=== PATIENT | female | born 1965 | race Two or more races ===

== ENCOUNTER → 2020-02-25 | Outpatient (CLI) | payer MEDICARE | END | disposition home or self-care (01) | LOC: LAB 15:42 → EDBD 15:42 | DX: E87.5 Hyperkalemia (principal) | CPT/HCPCS: 36415; 84132 ==

== ENCOUNTER 2020-09-20 20:26 | Inpatient (IN) | payer MEDICARE, MEDICAID ==
[~2020-09-20] VITALS: Ht 165.1 cm; Wt 119.1 kg
[2020-09-20 21:20] LABS: Basophils # (auto) 0.1 10 ^3/uL (0-0.2); Basophils % (auto) 0.8 % (0.0-2.0); Eosinophils # (auto) 0.1 10 ^3/uL (0-0.8); Lymphocytes # (auto) 1.1 10 ^3/uL (0.4-5.4)
[2020-09-20 21:23] LABS: Eosinophils % (auto) 0.7 % (0.0-7.0); Hematocrit 29.6 % (36.0-46.0); Hemoglobin 10.3 g/dL (12.2-16.2); Mean Corpuscular Hgb Conc. 34.6 g/dL (32.0-36.0); Mean Corpuscular Volume 78.2 fL (80.0-100.0); Monocytes % (auto) 6.3 % (0.0-12.0); Neutrophils # (auto) 13.1 10 ^3/uL (1.6-8.6); Neutrophils % (auto) 85.2 % (37.0-80.0); Platelet Count (auto) 480 10^3/uL (140-450); Red Blood Cells 3.79 10^6/uL (4.0-5.20); Red Cell Distribution Width 14.7 % (11.8-14.3); White Blood Cell 15.4 10^3/uL (4.4-10.8)
[2020-09-20 21:37] LABS: Potassium 4.8 mmol/L (3.5-5.1)
[2020-09-20 21:42] LABS: Albumin 2.2 g/dL (3.4-5.0); BUN/Creatinine Ratio 14.5; Calcium 8.4 mg/dL (8.5-10.1)
[2020-09-20 21:44] LABS: Bilirubin, Total 0.3 mg/dL (0.2-1.0); Total Protein 7.7 g/dL (6.4-8.2)
[2020-09-20] MEDS ORDERED: ONDANSETRON HCL 4 MG/2 ML VIAL IV ONE (22:15)
[2020-09-20] MEDS ORDERED: MORPHINE SULFATE 4 MG/ML SYR/VIAL IV ONE (22:15)
[2020-09-20] MEDS ORDERED: SODIUM CHLORIDE 0.9% 1,000 ML IV ONE (22:15)
[2020-09-21] MEDS ORDERED: PIPERACILLIN-TAZO 4.5GM 100 ML IV ONE (01:00)
[2020-09-21] MEDS ORDERED: VANCOMYCIN HCL 1000 MG VL IR ONE (01:00)
[2020-09-21] MEDS ORDERED: DOCUSATE SOD 100 MG CAP PO PRN (01:45)
[2020-09-21] MEDS ORDERED: VANCOMYCIN 1GM/250ML 250 ML IV ONE ×2 (01:45)
[2020-09-21] MEDS ORDERED: DEXTROSE (50%) 50ML SYRG IV PRN (01:45)
[2020-09-21] MEDS ORDERED: ACETAMINOPHEN 325 MG TAB PO PRN (01:45)
[2020-09-21] MEDS ORDERED: VANCOMYCIN PER PHARMACY 0 MG IV SCH (01:45)
[2020-09-21] MEDS ORDERED: MORPHINE SULF INJ 2 MG/ML SYRINGE 1ML IV PRN (01:45)
[2020-09-21] MEDS ORDERED: NITROGLYCERIN 0.4 MG SL TAB SL PRN (01:45)
[2020-09-21] MEDS: HYDROcodone-ACET 5/325MG TAB PO PRN ×2 (03:54→10:17)
[2020-09-21] MEDS: PIPERACILLIN-TAZOB 2.25GM 50 ML IV SCH ×3 (05:36→21:38)
[2020-09-21 06:04] LABS: Urine Bacteria MOD /hpf (None Seen); Urine Blood 1+ /uL (Negative); Urine Budding Yeast MANY /hpf (None Seen); Urine Hyaline Cast FEW /lpf (0 - 2); Urine Specific Gravity 1.021 (1.001-1.035); Urine WBC 60 /hpf (0 - 5)
[2020-09-21] MEDS: ACCU-CHEK COMFORT CURVE STRIP VI SCH ×4 (06:45→21:39)
[2020-09-21] MEDS: InsuLIN REG 1unit/0.01ml Soln (100units/ml) SC SCH ×4 (06:46→21:38)
[2020-09-21 07:37] LABS: Basophils # (auto) 0.1 10 ^3/uL (0-0.2); Eosinophils # (auto) 0.2 10 ^3/uL (0-0.8); Eosinophils % (auto) 1.4 % (0.0-7.0); Hemoglobin 9.4 g/dL (12.2-16.2); Lymphocytes # (auto) 1.9 10 ^3/uL (0.4-5.4)
[2020-09-21 07:42] LABS: Basophils % (auto) 0.7 % (0.0-2.0); Hematocrit 27.7 % (36.0-46.0); Lymphocytes % (auto) 13.5 % (10.0-50.0); Mean Corpuscular Hemoglobin 26.6 pg (28.0-32.0); Mean Corpuscular Hgb Conc. 33.8 g/dL (32.0-36.0); Mean Corpuscular Volume 78.6 fL (80.0-100.0); Monocytes % (auto) 7.1 % (0.0-12.0); Neutrophils # (auto) 10.8 10 ^3/uL (1.6-8.6); Neutrophils % (auto) 77.3 % (37.0-80.0); Platelet Count (auto) 434 10^3/uL (140-450); Red Blood Cells 3.52 10^6/uL (4.0-5.20); Red Cell Distribution Width 14.9 % (11.8-14.3)
[2020-09-21 07:59] LABS: Calcium 8.2 mg/dL (8.5-10.1); Potassium 4.7 mmol/L (3.5-5.1)
[2020-09-21 08:05] LABS: BUN/Creatinine Ratio 15.3; Bilirubin, Total 0.4 mg/dL (0.2-1.0); Total Protein 6.9 g/dL (6.4-8.2)
[2020-09-21] MEDS: MULTIPLE VITAMIN TAB PO SCH (10:00)
[2020-09-21] MEDS: FAMOTIDINE 20 MG TAB PO SCH (10:16)
[2020-09-21] MEDS: ZINC SULFATE 220mg CAP or TAB PO SCH (10:16)
[2020-09-21] MEDS: ASCORBIC ACID 500 MG TAB PO SCH ×2 (10:17→21:38)
[2020-09-21] MEDS: HEPARIN SODIUM (PORCINE) 5000 UNITS/ML 1ML VIAL SC SCH ×2 (10:18→21:38)
[2020-09-21] MEDS ORDERED: GABA-339 PO (10:48)
[2020-09-21] MEDS ORDERED: METH10T PO (10:48)
[2020-09-21] MEDS ORDERED: OXY20CRT PO (10:48)
[2020-09-21] MEDS ORDERED: PERCOT PO (10:48)
[2020-09-21] MEDS ORDERED: LEVEMIR SC (10:48)
[2020-09-21] MEDS ORDERED: ATE50T PO (10:48)
[2020-09-21] MEDS ORDERED: FURO40TA4 PO (10:48)
[2020-09-21] MEDS ORDERED: NIFE1TAB30 PO (10:48)
[2020-09-21] MEDS ORDERED: CITA10TA8 PO (10:48)
[2020-09-21] MEDS ORDERED: INSUINJ18 SC (10:48)
[2020-09-21] MEDS ORDERED: IBUP800T26 PO (10:48)
[2020-09-21] MEDS: LINEZOLID 600MG/300ML 300 ML IV SCH ×2 (12:24→13:16)
[2020-09-21] MEDS: DAKINS QUARTER STR 0.125% (NaHypochlorite) 473 ML TOPICAL SOL TOP SCH ×2 (12:54→21:52)
[2020-09-21 13:00] VITALS: BP 144/66
[2020-09-21 13:41] LABS: Partial Thromboplastin Time 35.3 sec (23.0-31.2)
[2020-09-21 17:00] VITALS: BP 139/67
[2020-09-21] MEDS: MORPHINE SULF INJ 2 MG/ML SYRINGE 1ML IV PRN ×2 (17:20→21:39)
[2020-09-21 18:39] LABS: Partial Thromboplastin Time 35.1 sec (23.0-31.2)
[2020-09-21] MEDS: ONDANSETRON HCL 4 MG/2 ML VIAL IV PRN (21:39)
[2020-09-21 22:00] VITALS: BP 134/69
[2020-09-22] MEDS: ONDANSETRON HCL 4 MG/2 ML VIAL IV PRN (03:41)
[2020-09-22] MEDS: MORPHINE SULF INJ 2 MG/ML SYRINGE 1ML IV PRN (03:41)
[2020-09-22] MEDS: PIPERACILLIN-TAZOB 2.25GM 50 ML IV SCH ×2 (05:31→14:00)
[2020-09-22] MEDS: ACCU-CHEK COMFORT CURVE STRIP VI SCH ×2 (05:31→11:30)
[2020-09-22 05:33] VITALS: BP 158/70
[2020-09-22] MEDS: InsuLIN REG 1unit/0.01ml Soln (100units/ml) SC SCH ×2 (05:55→11:30)
[2020-09-22 06:12] LABS: Basophils # (auto) 0 10 ^3/uL (0-0.2); Basophils % (auto) 0.6 % (0.0-2.0); Eosinophils # (auto) 0.2 10 ^3/uL (0-0.8); Eosinophils % (auto) 2.2 % (0.0-7.0); Hematocrit 27.2 % (36.0-46.0); Hemoglobin 9.6 g/dL (12.2-16.2); Lymphocytes # (auto) 1.1 10 ^3/uL (0.4-5.4); Lymphocytes % (auto) 13.1 % (10.0-50.0); Mean Corpuscular Hemoglobin 27.4 pg (28.0-32.0); Mean Corpuscular Hgb Conc. 35.1 g/dL (32.0-36.0); Mean Corpuscular Volume 78.2 fL (80.0-100.0); Monocytes # (auto) 0.7 10 ^3/uL (0-1.3); Monocytes % (auto) 8.3 % (0.0-12.0); Neutrophils # (auto) 6.3 10 ^3/uL (1.6-8.6); Neutrophils % (auto) 75.8 % (37.0-80.0); Platelet Count (auto) 450 10^3/uL (140-450); Red Blood Cells 3.48 10^6/uL (4.0-5.20); Red Cell Distribution Width 14.6 % (11.8-14.3); White Blood Cell 8.3 10^3/uL (4.4-10.8)
[2020-09-22 06:40] LABS: Potassium 4.9 mmol/L (3.5-5.1)
[2020-09-22 06:55] LABS: Albumin 1.9 g/dL (3.4-5.0); BUN/Creatinine Ratio 18.1; Bilirubin, Total 0.3 mg/dL (0.2-1.0); Calcium 7.8 mg/dL (8.5-10.1); Total Protein 6.6 g/dL (6.4-8.2)
[2020-09-22 08:46] LABS: % Iron Saturation 16.5 % (15-50)
[2020-09-22 09:00] VITALS: BP 152/76
[2020-09-22] MEDS: MULTIPLE VITAMIN TAB PO SCH (10:11)
[2020-09-22] MEDS: ZINC SULFATE 220mg CAP or TAB PO SCH (10:11)
[2020-09-22] MEDS: FAMOTIDINE 20 MG TAB PO SCH (10:12)
[2020-09-22] MEDS: ASCORBIC ACID 500 MG TAB PO SCH (10:14)
[2020-09-22] MEDS: HEPARIN SODIUM (PORCINE) 5000 UNITS/ML 1ML VIAL SC SCH (10:14)
[2020-09-22] MEDS: DAKINS QUARTER STR 0.125% (NaHypochlorite) 473 ML TOPICAL SOL TOP SCH (10:15)
[2020-09-22 13:00] VITALS: BP 153/71
[2020-09-22] MEDS ORDERED: METR500T PO (13:12)
[2020-09-22] MEDS ORDERED: LEVO-28 PO (13:12)
[2020-09-22 15:35] VITALS: BP 146/78
== END 2020-09-22 17:15 | disposition home or self-care (01) | DRG 444 ==
LOC: EDBD 20:26 → ER 20:31 → TELE 09-21 01:37 → TELE-WESTW 09-21 08:56
PROVIDERS: ADMIT Nurse Practitioner Family; ATTEND Internal Medicine
DX: K80.20 Calculus of gallbladder without cholecystitis without obstruction (principal); N17.0 Acute kidney failure with tubular necrosis; E43 Unspecified severe protein-calorie malnutrition; L03.115 Cellulitis of right lower limb; E11.52 Type 2 diabetes mellitus with diabetic peripheral angiopathy with gangrene; E87.1 Hypo-osmolality and hyponatremia; J96.10 Chronic respiratory failure, unspecified whether with hypoxia or hypercapnia; Z68.41 Body mass index [BMI] 40.0-44.9, adult; N18.4 Chronic kidney disease, stage 4 (severe); L03.116 Cellulitis of left lower limb; E11.621 Type 2 diabetes mellitus with foot ulcer; E88.09 Other disorders of plasma-protein metabolism, not elsewhere classified; E66.01 Morbid (severe) obesity due to excess calories; E11.65 Type 2 diabetes mellitus with hyperglycemia; E11.22 Type 2 diabetes mellitus with diabetic chronic kidney disease; L97.519 Non-pressure chronic ulcer of other part of right foot with unspecified severity; L97.529 Non-pressure chronic ulcer of other part of left foot with unspecified severity; Z80.1 Family history of malignant neoplasm of trachea, bronchus and lung; Z82.0 Family history of epilepsy and other diseases of the nervous system; Z20.822 Contact with and (suspected) exposure to COVID-19; Z53.29 Procedure and treatment not carried out because of patient's decision for other reasons; I10 Essential (primary) hypertension
CPT/HCPCS: 36415; 71045; 73630; 74176; 76705; 80053; 80202; 81001; 82570; 82962; 83036; 83540; 83550; 83605; 83930; 83935; 84156; 84439; 84443; 85025; 85610; 85652; 85730; 86850; 86900; 86901; 87077; 87086; 87088; 87186; 87205; 87426; 93005; 96361; 96365; 96366; 96368; 96375; G0378; J1815; J2405; J2543

== ENCOUNTER 2021-05-03 17:12 | Inpatient (IN) | payer MEDICARE, MEDICAID ==
[~2021-05-03] VITALS: Ht 172.7 cm; Wt 99.6 kg
[~2021-05-03 17:12] MED LIST: ATE50T PO; CITA10TA8 PO; FURO40TA4 PO; GABA-339 PO; INSUINJ18 SC; LEVEMIR SC; LEVO-28 PO; METH10T PO; METR500T PO; NIFE1TAB30 PO; OXY20CRT PO; PERCOT PO
[2021-05-03] MEDS ORDERED: methylPREDNISolone SOD SUCC 125 MG/2 ML VL IV ONE (17:30)
[2021-05-03] MEDS ORDERED: AZITHROMYCIN 500MG/ 250ML 250 ML IV ONE (17:30)
[2021-05-03 18:03] LABS: Basophils # (auto) 0.1 10 ^3/uL (0-0.2); Basophils % (auto) 0.4 % (0.0-2.0); Eosinophils # (auto) 0.1 10 ^3/uL (0-0.8); Eosinophils % (auto) 0.7 % (0.0-7.0); Hematocrit 29.3 % (36.0-46.0); Hemoglobin 9.6 g/dL (12.2-16.2); Lymphocytes # (auto) 0.5 10 ^3/uL (0.4-5.4); Lymphocytes % (auto) 2.9 % (10.0-50.0); Mean Corpuscular Hemoglobin 27.7 pg (28.0-32.0); Mean Corpuscular Hgb Conc. 32.8 g/dL (32.0-36.0); Mean Corpuscular Volume 84.4 fL (80.0-100.0); Monocytes # (auto) 0.7 10 ^3/uL (0-1.3); Monocytes % (auto) 4.4 % (0.0-12.0); Neutrophils # (auto) 14.6 10 ^3/uL (1.6-8.6); Neutrophils % (auto) 91.6 % (37.0-80.0); Red Blood Cells 3.47 10^6/uL (4.0-5.20); Red Cell Distribution Width 17.7 % (11.8-14.3); White Blood Cell 15.9 10^3/uL (4.4-10.8)
[2021-05-03 18:10] LABS: Urine Bacteria MOD /hpf (None Seen); Urine Blood Negative /uL (Negative); Urine Mucus FEW (None Seen); Urine Specific Gravity 1.008 (1.001-1.035); Urine WBC 13 /hpf (0 - 5); Urine WBC Clumps PRESENT /hpf (None Seen)
[2021-05-03 18:19] LABS: Albumin 2.4 g/dL (3.4-5.0); Calcium 7.7 mg/dL (8.5-10.1); Magnesium 1.3 mg/dL (1.6-2.6)
[2021-05-03 18:28] LABS: BUN/Creatinine Ratio 17.8; Bilirubin, Total 0.2 mg/dL (0.2-1.0); CRP High Sensitivity 4.47 mg/dL (< 0.3); Total Protein 6.9 g/dL (6.4-8.2)
[2021-05-03 19:01] LABS: Potassium 6.1 mmol/L (3.5-5.1)
[2021-05-03] MEDS ORDERED: SODIUM BICARBONATE 8.4 % INJ 50ML VIAL IV ONE (19:30)
[2021-05-03] MEDS ORDERED: CALCIUM GLUC 1,000mg/50ml-NS 50 ML IV ONE (19:30)
[2021-05-03] MEDS ORDERED: cefTRIAXone 1GM/50ML D5W 50 ML IV ONE (19:30)
[2021-05-03] MEDS ORDERED: InsuLIN REG 1unit/0.01ml Soln (100units/ml) IV ONE (20:00)
[2021-05-03] MEDS ORDERED: ACETAMINOPHEN 325 MG TAB PO ONE (20:45)
[2021-05-03] MEDS ORDERED: ONDANSETRON HCL 4 MG/2 ML VIAL IV PRN (21:15)
[2021-05-03] MEDS ORDERED: DEXTROSE (50%) 50ML SYRG IV PRN (21:15)
[2021-05-03] MEDS ORDERED: FUROSEMIDE 20 MG/2 ML VIAL IV ONE (21:15)
[2021-05-03] MEDS: MAGNESIUM SULFATE 1GM/100ML 100 ML IV SCH (22:05)
[2021-05-03] MEDS ORDERED: NALOXONE HCL 0.4 MG/ML VIAL IV ONE (23:00)
[2021-05-03] MEDS ORDERED: NITROGLYCERIN 0.4 MG SL TAB SL PRN (23:00)
[2021-05-03] MEDS ORDERED: MORPHINE SULFATE INJECTION 2 MG/ML SYRG IV PRN (23:00)
[2021-05-03 23:56] LABS: Hemoglobin 9.7 g/dL (12.2-16.2)
[2021-05-03 23:59] LABS: Hematocrit 29.5 % (36.0-46.0)
[2021-05-04] MEDS: MAGNESIUM SULFATE 1GM/100ML 100 ML IV SCH
[2021-05-04] MEDS: ASCORBIC ACID 500 MG TAB PO SCH ×3 (00:01→22:24)
[2021-05-04] MEDS: ACCU-CHEK COMFORT CURVE STRIP VI SCH ×6 (00:01→20:00)
[2021-05-04] MEDS: ATENOLOL 25 MG TAB PO SCH ×3 (00:01→22:24)
[2021-05-04] MEDS: InsuLIN REG 1unit/0.01ml Soln (100units/ml) SC SCH ×6 (00:05→22:38)
[2021-05-04] MEDS ORDERED: MAGNESIUM SULFATE 1GM/100ML 100 ML IV ONE (02:02)
[2021-05-04 07:31] LABS: Basophils # (auto) 0 10 ^3/uL (0-0.2); Basophils % (auto) 0.1 % (0.0-2.0); Eosinophils # (auto) 0 10 ^3/uL (0-0.8); Hematocrit 30.5 % (36.0-46.0); Lymphocytes # (auto) 0.6 10 ^3/uL (0.4-5.4); Lymphocytes % (auto) 3.4 % (10.0-50.0); Mean Corpuscular Hemoglobin 27.2 pg (28.0-32.0); Mean Corpuscular Hgb Conc. 32.7 g/dL (32.0-36.0); Mean Corpuscular Volume 83.2 fL (80.0-100.0); Monocytes # (auto) 0.1 10 ^3/uL (0-1.3); Monocytes % (auto) 0.7 % (0.0-12.0); Neutrophils # (auto) 17.9 10 ^3/uL (1.6-8.6); Neutrophils % (auto) 95.8 % (37.0-80.0); Red Blood Cells 3.66 10^6/uL (4.0-5.20); Red Cell Distribution Width 17.2 % (11.8-14.3); White Blood Cell 18.7 10^3/uL (4.4-10.8)
[2021-05-04] MEDS: FUROSEMIDE 40 MG TAB PO SCH ×2 (07:48→18:51)
[2021-05-04 07:56] LABS: Albumin 2.2 g/dL (3.4-5.0); BUN/Creatinine Ratio 19.8; Bilirubin, Total 0.2 mg/dL (0.2-1.0); Calcium 8.4 mg/dL (8.5-10.1); Total Protein 6.7 g/dL (6.4-8.2)
[2021-05-04] MEDS: cefTRIAXone 1GM/50ML D5W 50 ML IV SCH (08:01)
[2021-05-04 08:22] LABS: Potassium 5.6 mmol/L (3.5-5.1)
[2021-05-04] MEDS ORDERED: DexAMETHasone SOD PHOS 10MG/1ML VIAL INJ IV SCH (10:00)
[2021-05-04] MEDS ORDERED: ZINC SULFATE 220mg CAP or TAB PO SCH (10:00)
[2021-05-04] MEDS: AZITHROMYCIN 500MG/ 250ML 250 ML IV SCH (10:15)
[2021-05-04] MEDS: NIFEdipine ER 30 MG TAB PO SCH (10:16)
[2021-05-04] MEDS: MULTIPLE VITAMIN TAB PO SCH (10:16)
[2021-05-04] MEDS: ACETAMINOPHEN 325 MG TAB PO PRN ×2 (10:19→22:30)
[2021-05-04] MEDS ORDERED: SODIUM ZIRCONIUM CYCL 10 GM PAK PO ONE (10:45)
[2021-05-04 12:37] LABS: BUN/Creatinine Ratio 18.8; Calcium 8.5 mg/dL (8.5-10.1)
[2021-05-04] MEDS ORDERED: SULF400T11 PO ×2 (12:53→18:32)
[2021-05-04] MEDS ORDERED: INSR100KIT SUBCUT (12:53)
[2021-05-04] MEDS ORDERED: OME40GT PO (12:53)
[2021-05-04] MEDS ORDERED: FERR-7 PO (12:53)
[2021-05-04] MEDS ORDERED: MULT-1018 PO ×2 (12:53→18:44)
[2021-05-04] MEDS ORDERED: FLUT250M2 INH (12:53)
[2021-05-04] MEDS ORDERED: CHOL20007 PO ×2 (12:53→18:44)
[2021-05-04] MEDS ORDERED: ALBU2TAB4 PO (12:53)
[2021-05-04] MEDS ORDERED: SODI650T PO ×2 (12:53→18:44)
[2021-05-04 13:29] LABS: Potassium 5.6 mmol/L (3.5-5.1)
[2021-05-04] MEDS ORDERED: CITA10TA8 PO (18:32)
[2021-05-04] MEDS ORDERED: METH10T PO (18:32)
[2021-05-04] MEDS ORDERED: ATEN-60 PO (18:32)
[2021-05-04] MEDS ORDERED: FURO80TA3 PO (18:34)
[2021-05-04] MEDS ORDERED: NIFE90TA49 PO (18:34)
[2021-05-04] MEDS ORDERED: OME20GT PO (18:36)
[2021-05-04] MEDS ORDERED: INSREG3 SC (18:44)
[2021-05-04] MEDS ORDERED: FERR27TA2 PO (18:44)
[2021-05-04 18:57] VITALS: BP 160/82
[2021-05-04] MEDS ORDERED: PNEUMOCOCCAL VACC POLYS 25 MCG/0.5 ML VIAL IM ONE (19:15)
[2021-05-04] MEDS ORDERED: INFLUENZA QUAD 2021-2022 0.5 ML SYRG IM ONE (19:15)
[2021-05-04 20:00] VITALS: BP 144/76
[2021-05-04] MEDS: SODIUM ZIRCONIUM CYCL 10 GM PAK PO SCH (22:23)
[2021-05-05] MEDS: ACCU-CHEK COMFORT CURVE STRIP VI SCH ×7 (01:00→23:58)
[2021-05-05] MEDS: InsuLIN REG 1unit/0.01ml Soln (100units/ml) SC SCH ×6 (01:14→20:15)
[2021-05-05 05:00] VITALS: BP 132/83
[2021-05-05] MEDS: FUROSEMIDE 40 MG TAB PO SCH ×2 (06:12→22:25)
[2021-05-05] MEDS: SODIUM ZIRCONIUM CYCL 10 GM PAK PO SCH ×3 (06:12→22:25)
[2021-05-05 08:00] VITALS: BP 141/69
[2021-05-05] MEDS: cefTRIAXone 1GM/50ML D5W 50 ML IV SCH (09:05)
[2021-05-05] MEDS: NIFEdipine ER 30 MG TAB PO SCH (09:22)
[2021-05-05] MEDS: ATENOLOL 25 MG TAB PO SCH ×2 (09:23→22:26)
[2021-05-05] MEDS: ASCORBIC ACID 500 MG TAB PO SCH ×2 (09:23→22:26)
[2021-05-05] MEDS: MULTIPLE VITAMIN TAB PO SCH (09:24)
[2021-05-05] MEDS: AZITHROMYCIN 500MG/ 250ML 250 ML IV SCH (11:01)
[2021-05-05 12:00] VITALS: BP 142/74
[2021-05-05] MEDS ORDERED: LACTULOSE 20Gm/30ML SOLN PO PRN (13:45)
[2021-05-05 16:00] VITALS: BP 146/75
[2021-05-05] MEDS: OXYCODONE W/ ACETAMINOPHEN 5/325MG TABLET PO SCH ×2 (16:37→22:25)
[2021-05-05] MEDS: METHADONE HCL 10 MG TAB PO SCH ×2 (18:05→23:58)
[2021-05-05 22:00] VITALS: BP 144/74
[2021-05-05] MEDS: INSULIN LANTUS (GLARGINE) 1 /0.01ml (100units/ml) SC SCH (22:23)
[2021-05-05] MEDS: GABAPENTIN 400 MG CAP PO SCH (22:25)
[2021-05-06] MEDS: InsuLIN REG 1unit/0.01ml Soln (100units/ml) SC SCH ×6 (00:15→20:00)
[2021-05-06] MEDS: ALBUTEROL SULF 2.5 MG/0.5ML(0.5%) NEB SOLN NEB PRN (00:24)
[2021-05-06] MEDS: ACCU-CHEK COMFORT CURVE STRIP VI SCH ×5 (04:12→21:55)
[2021-05-06 05:00] VITALS: BP 130/73
[2021-05-06] MEDS: SODIUM ZIRCONIUM CYCL 10 GM PAK PO SCH ×2 (05:30→14:53)
[2021-05-06 06:44] LABS: Basophils # (auto) 0.1 10 ^3/uL (0-0.2); Basophils % (auto) 0.3 % (0.0-2.0); Eosinophils # (auto) 0.1 10 ^3/uL (0-0.8); Eosinophils % (auto) 0.5 % (0.0-7.0); Hematocrit 29.2 % (36.0-46.0); Hemoglobin 9.5 g/dL (12.2-16.2); Lymphocytes # (auto) 2.4 10 ^3/uL (0.4-5.4); Lymphocytes % (auto) 15.1 % (10.0-50.0); Mean Corpuscular Hemoglobin 27.4 pg (28.0-32.0); Mean Corpuscular Hgb Conc. 32.7 g/dL (32.0-36.0); Mean Corpuscular Volume 83.7 fL (80.0-100.0); Monocytes # (auto) 0.8 10 ^3/uL (0-1.3); Monocytes % (auto) 5.2 % (0.0-12.0); Neutrophils # (auto) 12.6 10 ^3/uL (1.6-8.6); Neutrophils % (auto) 78.9 % (37.0-80.0); Red Blood Cells 3.49 10^6/uL (4.0-5.20); Red Cell Distribution Width 17.1 % (11.8-14.3); White Blood Cell 15.9 10^3/uL (4.4-10.8)
[2021-05-06] MEDS: GABAPENTIN 400 MG CAP PO SCH ×3 (06:51→22:46)
[2021-05-06] MEDS: OXYCODONE W/ ACETAMINOPHEN 5/325MG TABLET PO SCH ×4 (06:52→22:45)
[2021-05-06] MEDS: METHADONE HCL 10 MG TAB PO SCH ×3 (06:52→18:09)
[2021-05-06 07:31] LABS: Potassium 4.2 mmol/L (3.5-5.1)
[2021-05-06 08:02] LABS: Albumin 2.1 g/dL (3.4-5.0); BUN/Creatinine Ratio 24.8; Bilirubin, Total 0.2 mg/dL (0.2-1.0); Calcium 8.1 mg/dL (8.5-10.1); Total Protein 6.4 g/dL (6.4-8.2)
[2021-05-06 08:35] VITALS: BP 147/83
[2021-05-06 09:00] VITALS: BP 120/88
[2021-05-06] MEDS: MULTIPLE VITAMIN TAB PO SCH (09:05)
[2021-05-06] MEDS: FUROSEMIDE 40 MG TAB PO SCH ×2 (09:06→22:46)
[2021-05-06] MEDS: cefTRIAXone 1GM/50ML D5W 50 ML IV SCH (09:06)
[2021-05-06] MEDS: ASCORBIC ACID 500 MG TAB PO SCH ×2 (09:07→22:48)
[2021-05-06] MEDS: ATENOLOL 25 MG TAB PO SCH ×2 (09:07→22:48)
[2021-05-06] MEDS: CITALOPRAM HYDROBR 20 MG TAB PO SCH (09:08)
[2021-05-06] MEDS: NIFEdipine ER 30 MG TAB PO SCH (09:09)
[2021-05-06] MEDS: CHOLECALCIFEROL (VITD3) 2,000 UNIT CAP/TAB PO SCH (09:10)
[2021-05-06] MEDS: INSULIN LANTUS (GLARGINE) 1 /0.01ml (100units/ml) SC SCH ×2 (10:00→22:00)
[2021-05-06] MEDS: AZITHROMYCIN 500MG/ 250ML 250 ML IV SCH (10:56)
[2021-05-06 13:00] VITALS: BP 136/64
[2021-05-06] MEDS: FERROUS SULFATE 325mg EC TAB PO SCH (13:29)
[2021-05-06 17:00] VITALS: BP 138/76
[2021-05-06 22:00] VITALS: BP 146/74
[2021-05-07] MEDS: METHADONE HCL 10 MG TAB PO SCH ×5 (00:03→23:53)
[2021-05-07] MEDS: ACCU-CHEK COMFORT CURVE STRIP VI SCH ×7 (00:04→23:54)
[2021-05-07] MEDS: InsuLIN REG 1unit/0.01ml Soln (100units/ml) SC SCH ×7 (04:00→23:55)
[2021-05-07] MEDS: GABAPENTIN 400 MG CAP PO SCH ×3 (04:37→21:42)
[2021-05-07] MEDS: OXYCODONE W/ ACETAMINOPHEN 5/325MG TABLET PO SCH ×4 (04:37→21:42)
[2021-05-07 05:00] VITALS: BP 155/70
[2021-05-07] MEDS: ALBUTEROL SULF 2.5 MG/0.5ML(0.5%) NEB SOLN NEB PRN ×2 (09:00→15:34)
[2021-05-07] MEDS: DOXYCYCLINE 100MG/250ML 250 ML IV SCH ×2 (10:00→21:44)
[2021-05-07] MEDS ORDERED: ENOXAPARIN SOD 40 MG/0.4 ML SYRINGE SC SCH (10:00)
[2021-05-07] MEDS: INSULIN LANTUS (GLARGINE) 1 /0.01ml (100units/ml) SC SCH ×2 (10:00→22:00)
[2021-05-07] MEDS: CITALOPRAM HYDROBR 20 MG TAB PO SCH (10:10)
[2021-05-07] MEDS: cefTRIAXone 1GM/50ML D5W 50 ML IV SCH (10:10)
[2021-05-07] MEDS: CHOLECALCIFEROL (VITD3) 2,000 UNIT CAP/TAB PO SCH (10:11)
[2021-05-07] MEDS: NIFEdipine ER 30 MG TAB PO SCH (10:11)
[2021-05-07] MEDS: FUROSEMIDE 40 MG TAB PO SCH ×2 (10:11→21:42)
[2021-05-07] MEDS: ASCORBIC ACID 500 MG TAB PO SCH ×2 (10:11→21:43)
[2021-05-07] MEDS: ATENOLOL 25 MG TAB PO SCH ×2 (10:12→21:43)
[2021-05-07] MEDS: MULTIPLE VITAMIN TAB PO SCH (10:12)
[2021-05-07 13:00] VITALS: BP 131/77
[2021-05-07] MEDS: FERROUS SULFATE 325mg EC TAB PO SCH (13:15)
[2021-05-07 17:00] VITALS: BP 133/73
[2021-05-07 19:30] LABS: BUN/Creatinine Ratio 22.8; Calcium 7.7 mg/dL (8.5-10.1)
[2021-05-07] MEDS: ENOXAPARIN SOD 100 MG/1 ML SYRINGE SC SCH (21:44)
[2021-05-07 22:00] VITALS: BP 140/79
[2021-05-08] MEDS: INSULIN LANTUS (GLARGINE) 1 /0.01ml (100units/ml) SC SCH ×3 (00:15→21:56)
[2021-05-08] MEDS: ACCU-CHEK COMFORT CURVE STRIP VI SCH ×5 (04:00→19:59)
[2021-05-08] MEDS: InsuLIN REG 1unit/0.01ml Soln (100units/ml) SC SCH ×5 (04:00→20:03)
[2021-05-08 05:00] VITALS: BP 159/66
[2021-05-08] MEDS: OXYCODONE W/ ACETAMINOPHEN 5/325MG TABLET PO SCH ×4 (05:37→21:34)
[2021-05-08] MEDS: GABAPENTIN 400 MG CAP PO SCH ×3 (05:37→21:34)
[2021-05-08] MEDS: METHADONE HCL 10 MG TAB PO SCH ×3 (05:37→17:36)
[2021-05-08 09:00] VITALS: BP 100/58
[2021-05-08] MEDS: cefTRIAXone 1GM/50ML D5W 50 ML IV SCH (09:19)
[2021-05-08] MEDS: DOXYCYCLINE 100MG/250ML 250 ML IV SCH ×2 (09:19→21:13)
[2021-05-08] MEDS: ASCORBIC ACID 500 MG TAB PO SCH ×2 (09:20→21:34)
[2021-05-08] MEDS: CITALOPRAM HYDROBR 20 MG TAB PO SCH (09:20)
[2021-05-08] MEDS: ENOXAPARIN SOD 100 MG/1 ML SYRINGE SC SCH ×2 (09:20→21:34)
[2021-05-08] MEDS: MULTIPLE VITAMIN TAB PO SCH (09:20)
[2021-05-08] MEDS: CHOLECALCIFEROL (VITD3) 2,000 UNIT CAP/TAB PO SCH (09:20)
[2021-05-08] MEDS: FUROSEMIDE 40 MG TAB PO SCH ×2 (09:21→21:56)
[2021-05-08] MEDS: NIFEdipine ER 30 MG TAB PO SCH ×2 (10:00→18:44)
[2021-05-08] MEDS: ATENOLOL 25 MG TAB PO SCH ×2 (10:00→21:56)
[2021-05-08] MEDS: FERROUS SULFATE 325mg EC TAB PO SCH (12:20)
[2021-05-08 13:00] VITALS: BP 162/83
[2021-05-08 17:00] VITALS: BP 175/87
[2021-05-08] MEDS ORDERED: hydrALAZINE HCL 20 MG/ML VL IV PRN (18:00)
[2021-05-08 23:24] VITALS: BP 185/81
[2021-05-09] MEDS: ACCU-CHEK COMFORT CURVE STRIP VI SCH ×6 (00:01→21:06)
[2021-05-09] MEDS: METHADONE HCL 10 MG TAB PO SCH ×4 (00:01→18:26)
[2021-05-09] MEDS: InsuLIN REG 1unit/0.01ml Soln (100units/ml) SC SCH ×6 (03:33→21:18)
[2021-05-09 05:00] VITALS: BP 146/71
[2021-05-09] MEDS: GABAPENTIN 400 MG CAP PO SCH ×3 (05:28→21:22)
[2021-05-09] MEDS: OXYCODONE W/ ACETAMINOPHEN 5/325MG TABLET PO SCH ×4 (05:29→21:23)
[2021-05-09 06:19] LABS: Calcium 8.1 mg/dL (8.5-10.1)
[2021-05-09 09:00] VITALS: BP 149/59
[2021-05-09] MEDS: CITALOPRAM HYDROBR 20 MG TAB PO SCH (09:09)
[2021-05-09] MEDS: cefTRIAXone 1GM/50ML D5W 50 ML IV SCH (09:09)
[2021-05-09] MEDS: DOXYCYCLINE 100MG/250ML 250 ML IV SCH ×2 (09:09→21:47)
[2021-05-09] MEDS: NIFEdipine ER 30 MG TAB PO SCH (09:10)
[2021-05-09] MEDS: FUROSEMIDE 40 MG TAB PO SCH ×2 (09:10→21:36)
[2021-05-09] MEDS: MULTIPLE VITAMIN TAB PO SCH (09:10)
[2021-05-09] MEDS: ASCORBIC ACID 500 MG TAB PO SCH ×2 (09:11→21:23)
[2021-05-09] MEDS: INSULIN LANTUS (GLARGINE) 1 /0.01ml (100units/ml) SC SCH ×2 (09:11→21:25)
[2021-05-09] MEDS: CHOLECALCIFEROL (VITD3) 2,000 UNIT CAP/TAB PO SCH (09:11)
[2021-05-09] MEDS: ATENOLOL 25 MG TAB PO SCH ×2 (09:11→21:36)
[2021-05-09] MEDS: ENOXAPARIN SOD 100 MG/1 ML SYRINGE SC SCH ×2 (09:11→21:23)
[2021-05-09] MEDS: FERROUS SULFATE 325mg EC TAB PO SCH (12:44)
[2021-05-09 13:00] VITALS: BP 122/61
[2021-05-09 16:56] VITALS: BP 112/69
[2021-05-09 22:00] VITALS: BP 132/70
[2021-05-09] MEDS ORDERED: CALCIUM CARB 500 MG CHEW TAB PO PRN (22:00)
[2021-05-10] MEDS: ACCU-CHEK COMFORT CURVE STRIP VI SCH ×4 (00:22→12:35)
[2021-05-10] MEDS: METHADONE HCL 10 MG TAB PO SCH ×3 (00:22→12:34)
[2021-05-10] MEDS: InsuLIN REG 1unit/0.01ml Soln (100units/ml) SC SCH ×5 (00:25→16:00)
[2021-05-10 05:00] VITALS: BP 150/73
[2021-05-10] MEDS: OXYCODONE W/ ACETAMINOPHEN 5/325MG TABLET PO SCH ×2 (06:40→12:34)
[2021-05-10] MEDS: GABAPENTIN 400 MG CAP PO SCH ×2 (06:40→15:19)
[2021-05-10 09:00] VITALS: BP 151/73
[2021-05-10] MEDS: cefTRIAXone 1GM/50ML D5W 50 ML IV SCH (09:18)
[2021-05-10] MEDS: DOXYCYCLINE 100MG/250ML 250 ML IV SCH (09:18)
[2021-05-10] MEDS: CITALOPRAM HYDROBR 20 MG TAB PO SCH (09:19)
[2021-05-10] MEDS: NIFEdipine ER 30 MG TAB PO SCH (09:20)
[2021-05-10] MEDS: FUROSEMIDE 40 MG TAB PO SCH (09:20)
[2021-05-10] MEDS: ATENOLOL 25 MG TAB PO SCH (09:20)
[2021-05-10] MEDS: MULTIPLE VITAMIN TAB PO SCH (09:20)
[2021-05-10] MEDS: CHOLECALCIFEROL (VITD3) 2,000 UNIT CAP/TAB PO SCH (09:21)
[2021-05-10] MEDS: ASCORBIC ACID 500 MG TAB PO SCH (09:21)
[2021-05-10] MEDS: ENOXAPARIN SOD 100 MG/1 ML SYRINGE SC SCH (09:22)
[2021-05-10] MEDS: INSULIN LANTUS (GLARGINE) 1 /0.01ml (100units/ml) SC SCH (09:22)
[2021-05-10] MEDS: FERROUS SULFATE 325mg EC TAB PO SCH (12:34)
[2021-05-10 13:00] VITALS: BP 174/77
[2021-05-10 13:06] LABS: Potassium 5.4 mmol/L (3.5-5.1)
[2021-05-10 13:17] LABS: Albumin 2.2 g/dL (3.4-5.0); BUN/Creatinine Ratio 23.4; Bilirubin, Total 0.1 mg/dL (0.2-1.0); Calcium 8.1 mg/dL (8.5-10.1); Total Protein 6.3 g/dL (6.4-8.2)
[2021-05-10] MEDS ORDERED: PIPERACILLIN-TAZOB 3.375GM 100 ML IV SCH (14:00)
== END 2021-05-10 17:00 | disposition left against medical advice (07) | DRG 871 ==
LOC: EDBD 17:12 → ER 17:19 → TELE 22:58 → TELE-CENTR 05-04 15:47
PROVIDERS: ADMIT Nurse Practitioner; ATTEND Internal Medicine
DX: A41.9 Sepsis, unspecified organism (principal); J18.9 Pneumonia, unspecified organism; G93.41 Metabolic encephalopathy; I50.33 Acute on chronic diastolic (congestive) heart failure; J96.21 Acute and chronic respiratory failure with hypoxia; N39.0 Urinary tract infection, site not specified; E87.1 Hypo-osmolality and hyponatremia; I13.0 Hypertensive heart and chronic kidney disease with heart failure and stage 1 through stage 4 chronic kidney disease, or unspecified chronic kidney disease; N17.9 Acute kidney failure, unspecified; J44.0 Chronic obstructive pulmonary disease with (acute) lower respiratory infection; J98.11 Atelectasis; L97.319 Non-pressure chronic ulcer of right ankle with unspecified severity; L97.329 Non-pressure chronic ulcer of left ankle with unspecified severity; Z20.822 Contact with and (suspected) exposure to COVID-19; R42 Dizziness and giddiness; E87.5 Hyperkalemia; N18.9 Chronic kidney disease, unspecified; E11.22 Type 2 diabetes mellitus with diabetic chronic kidney disease; E66.01 Morbid (severe) obesity due to excess calories; M17.10 Unilateral primary osteoarthritis, unspecified knee; E11.621 Type 2 diabetes mellitus with foot ulcer; I25.10 Atherosclerotic heart disease of native coronary artery without angina pectoris; I45.10 Unspecified right bundle-branch block; Z68.33 Body mass index [BMI] 33.0-33.9, adult; Z74.01 Bed confinement status; Z79.4 Long term (current) use of insulin; Z79.899 Other long term (current) drug therapy; Z80.1 Family history of malignant neoplasm of trachea, bronchus and lung; Z82.0 Family history of epilepsy and other diseases of the nervous system; Z85.118 Personal history of other malignant neoplasm of bronchus and lung; Z23 Encounter for immunization
CPT/HCPCS: 36415; 36600; 71045; 71250; 73700; 78582; 80048; 80053; 81001; 81025; 82140; 82270; 82728; 82805; 82962; 83605; 83735; 83880; 84484; 85014; 85018; 85025; 85379; 86141; 87040; 87070; 87077; 87186; 87205; 87426; 93005; 93306; 93970; 94640; 96365; 96366; 96367; 96368; 96375; 99291; G0378; J0696; J1100; J1815; J2543